=== PATIENT | male | born 1955 ===

== ENCOUNTER 2018-06-22 18:27 | Emergency (ER) | payer MEDICARE, OTHER ==
[2018-06-22 18:28] VITALS: BMI 20.3
[2018-06-22 18:45] VITALS: BP 128/79; PULSE 72; RESP 18; TEMP 98.2; O2SAT 98
== END 2018-06-22 20:04 | disposition left against medical advice (07) ==
LOC: ED 18:27
DX: Z02.89 Encounter for other administrative examinations (principal); Z00.8 Encounter for other general examination